=== PATIENT | female | born 1965 | race Hispanic/Latino ===

== ENCOUNTER 2017-09-17 23:10 | Emergency (ER) | payer OTHER ==
[~2017-09-17] VITALS: Ht 160 cm; Wt 86.0 kg
[~2017-09-17 23:10] MED LIST: CIPRO500 MG PO; IRON325 M1 PO; NO HOME MEDS; TORADOL OR; TYLENOL325 MG OR; ULTRAM50 M1 OR
[2017-09-17] MEDS ORDERED: ALPRAZOLAM0.25 M1 PO (23:21)
[2017-09-18 02:00] VITALS: BP 143/71
== END 2017-09-18 02:00 | disposition home or self-care (01) | DRG 882 ==
LOC: ED 23:10
DX: F43.23 Adjustment disorder with mixed anxiety and depressed mood (principal)
CPT/HCPCS: J2060

== ENCOUNTER 2020-11-15 06:39 | Day surgery (SDC) | payer OTHER ==
[~2020-11-15 06:39] MED LIST changes: +ALPRAZOLAM0.25 M1 PO; +LOSARTAN POTASS25 MG PO; +OMEPRAZOLE20 M1 PO
[2020-11-15 08:51] VITALS: BP 134/58
--- NOTE | 2020-11-26 15:56 | NUR ---
PER PHYSICIAN RECOMMENDATIONS PATIENT RESULTS NEGATIVE, FOLLOW UP X 5 YEARS FOR REPEAT EGD, CONTINUE APPOINTMENTS WITH PCP FOR CONTINUITY OF CARE.
== END 2020-11-15 09:07 | disposition home or self-care (01) | DRG 951 ==
LOC: ENDO 06:39 → ORM 08:45 → ENDO 09:07
PROVIDERS: ATTEND Surgery
PROC: 0DJD8ZZ Inspection of Lower Intestinal Tract, Via Natural or Artificial Opening Endoscopic (ICD-10-PCS; principal; 2020-11-15)
PROC: 0DB28ZX Excision of Middle Esophagus, Via Natural or Artificial Opening Endoscopic, Diagnostic (ICD-10-PCS; 2020-11-15)
DX: Z12.11 Encounter for screening for malignant neoplasm of colon (principal); Q39.8 Other congenital malformations of esophagus; K64.8 Other hemorrhoids; I10 Essential (primary) hypertension

== ENCOUNTER 2021-02-18 17:47 | Emergency (ER) | payer OTHER ==
[~2021-02-18] VITALS: Ht 160 cm; Wt 84.0 kg
[2021-02-18 17:55] VITALS: BP 149/63
[2021-02-18 18:17] LABS: URINE BILIRUBIN - DIPSTICK NEGATIVE (NEGATIVE); URINE BLOOD DIPSTICK MODERATE (NEGATIVE); URINE COLOR YELLOW; URINE GLUCOSE - DIPSTICK NEGATIVE (NEGATIVE); URINE KETONE NEGATIVE (NEGATIVE); URINE PH 7.5 (4.5-8.0); URINE PROTEIN - DIPSTICK 30 mg/dL (NEG-TRACE); URINE SPECIFIC GRAVITY 1.025
[2021-02-18 18:21] LABS: URINE LEUK ESTERASE MODERATE (NEGATIVE); URINE NITRITE - DIPSTICK POSITIVE (Negative); URINE SQUAMOUS EPITHELIAL CELL FEW EPI/hpf (0-FEW); URINE WBC 20-50 WBC/hpf (0-5)
[2021-02-18] MEDS ORDERED: PYRIDIUM200 MG PO (18:31)
[2021-02-18] MEDS ORDERED: OMNI-PAC300 MG PO (18:31)
== END 2021-02-18 19:00 | disposition home or self-care (01) | DRG 690 ==
LOC: ED 17:47
PROVIDERS: Family Medicine
DX: N39.0 Urinary tract infection, site not specified (principal); I10 Essential (primary) hypertension; E66.9 Obesity, unspecified; B96.20 Unspecified Escherichia coli [E. coli] as the cause of diseases classified elsewhere